=== PATIENT | female | born 1960 | race Caucasian/White ===

== ENCOUNTER 2018-07-14 14:07 | Emergency (ER) | payer BC ==
[~2018-07-14 14:07] MED LIST: ALLP300T PO; ASP81TEC PO; ATEN50TA PO; ATOR40TA PO; BUPR150T6 PO; CALC-149 PO; CALC667C6 PO; CYCL10TA9 PO; E400C PO; ESTR1TAB24 PO; FLAX100031 PO; FURO40TA4 PO; HYDR1TAB66 PO; KCL10CCR PO; LUTE10TA PO; MAGN400T6 PO; MELA1TAB11 PO; NAPR220C11 PO; QUET50TA49 PO; SENN-75 PO; SOLI10TA4 PO; TML25OP25 OU; VITA1CAP59 PO; VITAMIN B12 SL; ZPR80C PO; [UNRECOGNIZED DRUG - OTHER] PO
--- OUTSIDE RECORDS SUMMARY | 2018-07-14 14:13 | XMS REPORT ---
Author Author KETURAH ROMERO Organization [facility] Address [address] [place] [address] Care Team Providers Care Wastewater Operator Name Role Phone HEATHER, KETURAH Unavailable PROBLEMS Type Condition ICD9-CM Code [id number] Code Onset Dates Condition Status SNOMED Code Problem Essential hypertension I10 Active 89060514 Problem Other specified hypothyroidism E03.8 Active 41945636 Problem Primary osteoarthritis involving multiple joints M15.0 Active 717784049 Problem Bipolar 1 disorder F31.9 Active 207754127 ALLERGIES Substance Reaction Event Type Date Status Morphine Sulfate itching Drug Allergy May, Active ENCOUNTERS Encounter Location Date Diagnosis [address] [address] May, [address] [address] May, [address] [address] May, Other specified hypothyroidism E03.[address] [address] May, Other specified hypothyroidism E03.8 ; Occasional tremors R25.1 ; Bipolar 1 disorder F31.9 ; Bursitis of left hip, unspecified bursa M70.72 ; Primary osteoarthritis involving multiple joints M15.0 and Essential hypertension I10 [address] [address] May, Other specified hypothyroidism E03.8 and Occasional tremors R25.1 IMMUNIZATIONS No Known Immunizations SOCIAL HISTORY Never Assessed REASON FOR VISIT tremors in hands PLAN OF CARE Activity Details Follow Up prn Reason: VITAL SIGNS Height 66 in 2018-05-20 Weight 217 lbs 2018-05-20 BMI 35.02 kg/m2 2018-05-20 Blood pressure systolic 140 mmHg 2018-05-20 Blood pressure diastolic 78 mmHg 2018-05-20 MEDICATIONS Medication Instructions Dosage Frequency Start Date End Date Duration Status Acyclovir 5 % Externally Five times a day 1 application to affected area 4 day(s) Active Vitamin E 400 UNIT Orally Once a day 1 capsule 24h 30 day(s) Active Hydrocodone-Acetaminophen 5-325 MG Orally every 6 hrs 1 tablet as needed 6h Active Diclofenac Sodium 75 MG Orally Twice a day 1 tablet with food or milk 12h 30 day(s) Active VESIcare 10 MG Orally Once a day 1 tablet 24h 30 day(s) Active Protonix 40 MG Orally Once a day 1 tablet 24h 30 day(s) Active Levothyroxine Sodium 75 MCG TAKE 1 TABLET BY MOUTH ONCE DAILY IN THE MORNING 30 Active Ondansetron 4 MG as directed Active Cyclobenzaprine HCl 10 MG Orally Three times a day 1 tablet as needed 8h Active Estradiol 1 MG Orally Daily for Three Weeks, 1 Week off 1 tablet 30 day(s) Active Rome Carbonate ER 450 MG Orally Once a day 1 tablet at bedtime 24h 30 day(s) Active Abilify 15 MG Orally Once a day 1 tablet 24h 30 day(s) Active Lipitor 40 MG Orally Once a day 1 tablet 24h 30 day(s) Active Carafate 1 GM Orally Twice a day 1 tablet on an empty stomach 12h 30 day(s) Active Allopurinol 300 MG Orally Once a day 1 tablet 24h 30 day(s) Active Seroquel 50 MG Orally Once a day 1 tablet 24h 30 day(s) Active Clonidine HCl 0.1 MG Orally Once a day 1 tablet at bedtime 24h 30 day (s) Active Trazodone HCl 100 MG Orally Once a day 1 tablet at bedtime 24h 30 day (s) Active Cetirizine HCl 10 MG Orally Once a day 1 tablet 24h 30 day(s) Active RESULTS No Results PROCEDURES Procedure Date Ordered Result Body Site COMPREHEN METABOLIC PANEL May 20, 2018 LIPID PANEL May 20, 2018 ASSAY OF FREE THYROXINE May 20, 2018 ASSAY THYROID STIM HORMONE May 20, 2018 INSTRUCTIONS MEDICATIONS ADMINISTERED No Known Medications
--- OUTSIDE RECORDS SUMMARY | 2018-07-14 14:13 | XMS REPORT ---
Author Author KETURAH ROMERO Organization [facility] Address [address] [place] [address] Care Team Providers Care Billboard Erector Helper Name Role Phone HEATHERKETURAH Samuels Unavailable PROBLEMS Type Condition ICD9-CM Code [id number] Code Onset Dates Condition Status SNOMED Code Problem Bursitis of left hip 726.5 Dec, 0 [id number] Problem Hypertension 401.9 Jan, 0 11714442 Problem Bipolar I disorder 296.7 0 401484450 Problem DA (degenerative arthritis) 715.90 Oct, 0 046123965 Problem Hypertension I10 Jan, 0 32459171 Problem Gastroesophageal reflux disease with esophagitis 530.11 May, 0 989776811 Problem Status post colonoscopy Z98.890 May, 0 652048566816 Problem Bursitis of left hip M70.72 Dec, 0 01042405992546384 Problem Essential hypertension I10 Active 30693343 Problem Status post colonoscopy V45.89 May, 0 044801116381 Problem Other specified hypothyroidism E03.8 Active 74479945 Problem DA (degenerative arthritis) M19.90 Oct, 0 990733143 Problem Bipolar I disorder F31.9 0 046841775 Problem Gastroesophageal reflux disease with esophagitis K21.0 May, 0 257360792 Problem Primary osteoarthritis involving multiple joints M15.0 Active 443062204 Problem Bipolar 1 disorder F31.9 Active 796384959 ALLERGIES No Information ENCOUNTERS Encounter Location Date Diagnosis [address] [address] May, [address] [address] May, [address] [address] May, [address] [address] May, [address] [address] May, Other specified hypothyroidism E03.[address] [address] May, Other specified hypothyroidism E03.8 ; Occasional tremors R25.1 ; Bipolar 1 disorder F31.9 ; Bursitis of left hip, unspecified bursa M70.72 ; Primary osteoarthritis involving multiple joints M15.0 and Essential hypertension I10 [address] [address] May, Other specified hypothyroidism E03.8 and Occasional tremors R25.1 [facility] [address] [address] Feb, [facility] [address] [address] Oct, [facility] [address] [address] Sep, [facility] [address] [address] Jun, [facility] [address] [address] May, IMMUNIZATIONS No Known Immunizations SOCIAL HISTORY Never Assessed REASON FOR VISIT Med request PLAN OF CARE VITAL SIGNS MEDICATIONS Medication Instructions Dosage Frequency Start Date End Date Duration Status Magnesium Oxide 400 MG Orally 2 times a day 1 tablet 12h May, 90 days Active RESULTS No Results PROCEDURES No Known procedures INSTRUCTIONS MEDICATIONS ADMINISTERED No Known Medications
--- OUTSIDE RECORDS SUMMARY | 2018-07-14 14:14 | XMS REPORT ---
Author Author KETURAH ROMERO Organization [facility] Address [address] [place] [address] Care Team Providers Care Blast Furnace Operator Name Role Phone KETURAH ROMERO Unavailable PROBLEMS Type Condition ICD9-CM Code AWL27-OJ Code Onset Dates Condition Status SNOMED Code Problem Essential hypertension I10 Active 43935303 Problem Other specified hypothyroidism E03.8 Active 50494052 Problem Primary osteoarthritis involving multiple joints M15.0 Active 974360617 Problem Bipolar 1 disorder F31.9 Active 016019865 ALLERGIES No Information ENCOUNTERS Encounter Location Date Diagnosis [address] [address] May, [address] [address] May, [address] [address] May, Other specified hypothyroidism E03.[address] [address] May, Other specified hypothyroidism E03.8 ; Occasional tremors R25.1 ; Bipolar 1 disorder F31.9 ; Bursitis of left hip, unspecified bursa M70.72 ; Primary osteoarthritis involving multiple joints M15.0 and Essential hypertension I10 [address] [address] May, Other specified hypothyroidism E03.8 and Occasional tremors R25.1 IMMUNIZATIONS No Known Immunizations SOCIAL HISTORY Never Assessed REASON FOR VISIT LM - Requests return call PLAN OF CARE VITAL SIGNS MEDICATIONS Unknown Medications RESULTS No Results PROCEDURES No Known procedures INSTRUCTIONS MEDICATIONS ADMINISTERED No Known Medications
== END 2018-07-14 14:22 | disposition left against medical advice (07) ==
LOC: EDUNIT# 14:07 → ER FS 14:10
DX: R42 Dizziness and giddiness (principal); R00.1 Bradycardia, unspecified

== ENCOUNTER → 2019-12-24 | Outpatient (CLI) | payer BC | LOC: CARD 10:30 | PROVIDERS: ATTEND Internal Medicine Advanced Heart Failure and Transplant Cardiology | DX: I50.32 Chronic diastolic (congestive) heart failure (principal); I05.0 Rheumatic mitral stenosis | CPT/HCPCS: 93306 ==

== ENCOUNTER 2020-03-12 10:20 | Emergency (ER) | payer BC ==
--- NOTE | 2020-03-12 10:49 | ED Head Injury ---
General Chief Complaint: Head/Cervical Problems Stated Complaint: HEAD INJ Source: patient History of Present Illness Date Seen by Provider: Mar 12, 2020 Time Seen by Provider: 10:49 Initial Comments 59-year-old female presenting with complaint of hitting her head. She states around 9 AM she was with friends and while laughing and she had flung her head back and hit the back of her head against a ledge. Then she jerked her head for her after hitting it and was having pain. She denies losing consciousness. However she was having dizziness and nausea with some blurred vision. There was never any vomiting. She does not take any blood thinners. She had no drainage from her nose or ears. Her symptoms resolved spontaneously. She is feeling be tter now but still has some mild pain to the back of her head especially when she pushes on it. The pain does extend down into her neck muscles. Allergies and Home Medications Allergies Coded Allergies: morphine (Unverified Allergy, Unknown, 12/24/19) Home Medications Allopurinol 300 Mg Tab, 300 MG PO DAILY, (Reported) Aspirin 81 Mg Tabec, 81 MG PO DAILY, (Reported) Atenolol 50 Mg Tablet, 1 EACH PO DAILY, (Reported) Atorvastatin Calcium 40 Mg Tablet, 1 EACH PO DAILY, (Reported) Bupropion Hcl 150 Mg Tab.sr.24h, 1 TAB PO DAILY, (Reported) Calcium Citrate/Vitamin D3 1 Each Tablet, 1 EACH PO DAILY, (Reported) Cyclobenzaprine Hcl 10 Mg Tablet, 1 EACH PO Q8HR PRN, (Reported) Estradiol 1 Mg Tablet, 1 MG PO DAILY, (Reported) Flaxseed Oil 1,000 Mg Capsule, 2 GM PO DAILY, (Reported) Furosemide 40 Mg Tablet, 1 EACH PO DAILY, (Reported) Hydrocodone Bit/Acetaminophen 1 Each Tablet, 1 EACH PO Q4 PRN, (Reported) Lutein 10 Mg Tablet, 20 MG PO DAILY, (Reported) Magnesium Oxide 400 Mg Tablet, 400 MG PO BID, (Reported) Naproxen Sodium 220 Mg Capsule, 2 TAB PO PRN, (Reported) Potassium Chloride 10 Meq Tablet.sa, 10 MEQ PO BID PRN, (Reported) Pyridoxine/Melatonin 1 Tab Tablet, 1 TAB PO DAILY, (Reported) Quetiapine Fumarate 50 Mg Tab.sr.24h, 50 MG PO HS, (Reported) Sennosides/Docusate Sodium 1 Each Tablet, 2 EACH PO HS, (Reported) Solifenacin Succinate 10 Mg Tablet, 10 MG PO DAILY, (Reported) Timolol Maleate 15 Ml Btl, 0.5 % OU BID, (Reported) Triazolam 0.25 Mg Tablet, 0.5 MG PO HS, (Reported) Vitamin B Complex 1 Cap Capsule, 1 CAP PO 1700, (Reported) Vitamin E Acetate 400 Unit Capsule, 400 UNIT PO DAILY, (Reported) Ziprasidone 80 Mg Cap, 160 MG PO 1700, (Reported) [Scott And Nail Vit] , 2 TAB PO DAILY, (Reported) [Vitamin B12 ] , 500 MCG SL DAILY, (Reported) 3 GTTS Patient Home Medication List Home Medication List Reviewed: Yes Review of Systems Review of Systems Constitutional: No chills; dizziness; No fever Eyes: Blurred Vision Ears, Nose, Mouth, Throat: denies ear discharge, denies nose discharge, denies epistaxis Respiratory: no symptoms reported Cardiovascular: no symptoms reported Gastrointestinal: nausea; No vomiting Genitourinary: no symptoms reported Musculoskeletal: neck pain (pain from back of her head extends down into muscles of her neck) Skin: no symptoms reported Psychiatric/Neurological: See HPI Hematologic/Lymphatic: Denies Easy Bleeding, Denies Easy Bruising Past Mtlwakt-Mcyxdf-Obmpuq Hx Past Med/Social Hx: Reviewed Nursing Past Med/Soc Hx Patient Social History Recent Foreign Travel: No Contact w/Someone Who Travel: No Past Medical History Respiratory: No Cardiac: Yes High Cholesterol, Hypertension Reproductive Disorders: No Physical Exam Vital Signs Vital Signs - First Documented 03/12/20 10:47 Temp 37.4 Pulse 75 Resp 18 B/P (MAP) 179/80 (113) Pulse Ox 97 Capillary Refill : Height, Weight, BMI Height: '" Weight: lbs. oz. kg; BMI Method: General Appearance: WD/WN, no apparent distress HEENT: PERRL/EOMI, normal ENT inspection, TMs normal, pharynx normal Neck: full range of motion, supple, tender lateral (mild muscle tenderness bilaterally); No tender midline Cardiovascular: normal peripheral pulses, regular rate, rhythm Respiratory: chest non-tender, lungs clear, normal breath sounds, no respiratory distress, no accessory muscle use Psychiatric: alert, oriented x 3 Crainal Nerves: normal hearing, normal speech, PERRL Coordination/Gait: normal gait Motor/Sensory: no motor deficit, no sensory deficit Skin: normal color, warm/dry Rachel Coma Score Best Eye Response: (4) Open Spontaneously Best Verbal Response: (5) Oriented Best Motor Response: (6) Obeys Commands Victor Total: 15 Images 1 - mild tender to palpation. no step off or deformity Progress/Results/Core Measures Results/Orders My Orders Orders - LESA VICTOR MD Ct Head Wo (03/12/20 10:42) Vital Signs/I&O 03/12/20 03/12/20 10:47 11:25 Temp 37.4 Pulse 75 74 Resp 18 16 B/P (MAP) 179/80 (113) 144/74 Pulse Ox 97 95 Progress Progress Note : Progress Note CT head obtained due to her symptoms of dizzy, nausea, blurred vision. no acute abnormality seen on imaging. pt reassured and corrections counselor on follow up and return precautions Diagnostic Imaging Diagonstic Imaging: CT Plain Films/CT/US/NM/MRI: head Comments NAME: KEYA CARTWRIGHT MED REC#: [id number] PT STATUS: REG ER : 1960 PHYSICIAN: LESA VICTOR MD ADMIT DATE: 03/12/20/ER FS Draft Date of Exam:03/12/20 CT HEAD WO PROCEDURE: CT head without contrast. TECHNIQUE: Multiple contiguous axial images were obtained through the brain without the use of intravenous contrast. Auto Exposure Controls were utilized during the CT exam to meet ALARA standards for radiation dose reduction. INDICATION: Head injury. Dizziness. COMPARISON: None. FINDINGS: No intracranial hemorrhage, mass effect, hydrocephalus or extra-axial fluid collections. No CT evidence of a territorial infarction. Osseous structures are intact. Paranasal sinuses and mastoids are clear where seen. IMPRESSION: No acute intracranial CT findings. Dictated on workstation # [id number] Dict: 03/12/20 1100 Trans: 03/12/20 1103 [facility] [address] Interpreted by: RAH GRANADOS MD Electronically signed by: Departure Impression Primary Impression: Closed head injury without loss of consciousness Qualified Codes: S09.90XA - Unspecified injury of head, initial encounter Disposition: 01 HOME, SELF-CARE Condition: Stable Departure-Patient Inst. Decision time for Depature: 11:19 Referrals: KETURAH ROMERO APRN (PCP) Primary Care Physician [facility] (Family) Primary Care Physician Patient Instructions: Minor Head Injury, Adult ED Add. Discharge Instructions: Stay well hydrated and get plenty of rest. Follow up with clinic for continued concerns. May alternate ice and heat to the back of your head and neck to help with pain and muscle spasms. May use Ibuprofen or Naproxen for inflammation. May use the Cyclobenzaprine (Flexeril) you have at home if needed for muscle spasms. All discharge instructions reviewed with patient and/or family. Voiced understanding. LESA VICTOR MD Mar 12, 2020 10:49
--- NOTE | 2020-03-12 11:04 | Diagnostic Imaging Report ---
PROCEDURE: CT head without contrast. TECHNIQUE: Multiple contiguous axial images were obtained through the brain without the use of intravenous contrast. Auto Exposure Controls were utilized during the CT exam to meet ALARA standards for radiation dose reduction. INDICATION: Head injury. Dizziness. COMPARISON: None. FINDINGS: No intracranial hemorrhage, mass effect, hydrocephalus or extra-axial fluid collections. No CT evidence of a territorial infarction. Osseous structures are intact. Paranasal sinuses and mastoids are clear where seen. IMPRESSION: No acute intracranial CT findings. Dictated by: Dictated on workstation # [id number]
[2020-03-12 11:25] VITALS: BP 144/74
== END 2020-03-12 11:25 | disposition home or self-care (01) ==
LOC: EDUNIT# 10:20 → ER FS 10:23
DX: S09.90XA Unspecified injury of head, initial encounter (principal); E78.00 Pure hypercholesterolemia, unspecified; I10 Essential (primary) hypertension; R40.2410 Glasgow coma scale score 13-15, unspecified time; Z88.5 Allergy status to narcotic agent; Z79.82 Long term (current) use of aspirin; W22.8XXA Striking against or struck by other objects, initial encounter
CPT/HCPCS: 70450

== ENCOUNTER 2020-09-07 23:47 | Emergency (ER) | payer BC ==
[~2020-09-07] VITALS: Ht 163 cm; Wt 91.3 kg
[2020-09-08] MEDS ORDERED: ONDANSETRON 4 MG/2 ML (SDV) Z0FRAN IVP ONE (00:15)
[2020-09-08 00:20] LABS: BASOPHILS % (AUTO) 0 % (0-10); EOSINOPHILS # (AUTO) 0.2 10^3/uL (0.0-0.3); EOSINOPHILS % (AUTO) 1 % (0-10); HEMATOCRIT 44 % (35-52); HEMOGLOBIN 14.6 g/dL (11.5-16.0); LYMPHOCYTES # (AUTO) 3.3 10^3/uL (1.0-4.0); LYMPHOCYTES % (AUTO) 21 % (12-44); MEAN CORPUSCULAR HEMOGLOBIN 29 pg (25-34); MEAN CORPUSCULAR HGB CONC 33 g/dL (32-36); MEAN CORPUSCULAR VOLUME 87 fL (80-99); MEAN PLATELET VOLUME 10.4 fL (9.0-12.2); MONOCYTES # (AUTO) 1.2 10^3/uL (0.0-1.0); MONOCYTES % (AUTO) 8 % (0-12); NEUTROPHILS # (AUTO) 11.1 10^3/uL (1.8-7.8); NEUTROPHILS % (AUTO) 70 % (42-75); PLATELET COUNT 297 10^3/uL (130-400); WHITE BLOOD COUNT 15.9 10^3/uL (4.3-11.0)
[2020-09-08 00:43] LABS: ALBUMIN 3.9 GM/DL (3.2-4.5); CHLORIDE 100 MMOL/L (98-107); POTASSIUM 3.8 MMOL/L (3.6-5.0); SODIUM 139 MMOL/L (135-145)
[2020-09-08 00:44] LABS: AMYLASE 43 U/L (25-125); CALCIUM 9.7 MG/DL (8.5-10.1)
[2020-09-08 00:45] LABS: GLUCOSE 96 MG/DL (70-105)
[2020-09-08 00:46] LABS: TOTAL PROTEIN 6.8 GM/DL (6.4-8.2)
[2020-09-08 00:47] LABS: BILIRUBIN,TOTAL 0.3 MG/DL (0.1-1.0); CARBON DIOXIDE 28 MMOL/L (21-32)
[2020-09-08 00:49] LABS: ALKALINE PHOSPHATASE 69 U/L (40-136); CREATININE SERUM 0.92 MG/DL (0.60-1.30); GFR ESTIMATED > 60
[2020-09-08 00:50] LABS: BUN/CREATININE RATIO 17
[2020-09-08 00:52] LABS: ALANINE AMINOTRANSFERASE 47 U/L (0-55); MAGNESIUM 1.8 MG/DL (1.6-2.4)
[2020-09-08 00:53] LABS: CREATINE KINASE 106 U/L (29-168); LIPASE 33 U/L (8-78)
[2020-09-08 00:57] LABS: BILIRUBIN,URINE NEGATIVE (NEGATIVE); CLARITY,URINE CLEAR; COLOR,URINE YELLOW; GLUCOSE, URINE (UA) NEGATIVE (NEGATIVE); KETONES,URINE NEGATIVE (NEGATIVE); LEUKOCYTE ESTERASE ,URINE NEGATIVE (NEGATIVE); NITRITE,URINE NEGATIVE (NEGATIVE); PH,URINE 6.5 (5-9); PROTEIN,URINE NEGATIVE (NEGATIVE)
[2020-09-08 01:00] LABS: CREATINE KINASE MB 5.1 NG/ML (<6.6)
[2020-09-08 01:26] LABS: AMPHETAMINE SCREEN, URINE NEGATIVE (NEGATIVE); BARBITURATE SCREEN URINE NEGATIVE (NEGATIVE); BENZODIAZEPINES SCREEN URINE NEGATIVE (NEGATIVE); CANNABINOID SCREEN, URINE NEGATIVE (NEGATIVE); COCAINE SCREEN URINE NEGATIVE (NEGATIVE); METHADONE STAT NEGATIVE (NEGATIVE); METHAMPHETAMINE SCREEN URINE S NEGATIVE (NEGATIVE); OPIATE SCREEN URINE NEGATIVE (NEGATIVE); OXYCODONE STAT NEGATIVE (NEGATIVE); PROPOXYPHENE STAT NEGATIVE (NEGATIVE); TRICYCLIC ANTIDEPRESSANTS SCRE NEGATIVE (NEGATIVE)
[2020-09-08] MEDS ORDERED: KETOROLAC 30 MG/ML VIAL IVP ONE (01:45)
[2020-09-08 01:48] LABS: BACTERIA,URINE NEGATIVE /HPF
[2020-09-08] MEDS ORDERED: HOLD METFORMIN - RECEIVED CONTRAST 20 ML VIAL IV SCH (02:15)
[2020-09-08] MEDS ORDERED: CATHETER FLUSH 10 ML SYR IV PRN (02:15)
[2020-09-08] MEDS ORDERED: NS 100 ML (IVPB) BAG IV ONE (02:15)
[2020-09-08] MEDS ORDERED: IOHEXOL 350 MG/ML 100 ML (OMNIPAQUE 350) VIAL IV ONE (02:15)
[2020-09-08 02:38] LABS: EOSINOPHILS % (MANUAL) 1 %; LYMPHOCYTES % (MANUAL) 23 %; MONOCYTES % (MANUAL) 7 %; NEUTROPHILS % (MANUAL) 69 %; RBC MORPH NORMAL
[2020-09-08] MEDS ORDERED: PANT40TA2 PO (03:07)
[2020-09-08] MEDS ORDERED: ONDA4TAB11 PO (03:07)
[2020-09-08] MEDS ORDERED: KETO10TA PO (03:07)
--- NOTE | 2020-09-08 03:07 | ED General ---
General Chief Complaint: Upper Extremity Stated Complaint: LEFT SHOULDER,BACK & NECK PAIN Nursing Triage Note: C/O LEFT SHOUDLER PAIN RADIATING TO NECK/POSTERIOR HEAD, RIGHT CHEST X1 DAY. DENIES INJURY. C/O DIZZINESS TONIGHT. Nursing Sepsis Screen: No Definite Risk Allergies and Home Medications Allergies Coded Allergies: morphine (Unverified Allergy, Unknown, 12/24/19) Home Medications Allopurinol 300 Mg Tab, 300 MG PO DAILY, (Reported) Aspirin 81 Mg Tabec, 81 MG PO DAILY, (Reported) Atenolol 50 Mg Tablet, 1 EACH PO DAILY, (Reported) Atorvastatin Calcium 40 Mg Tablet, 1 EACH PO DAILY, (Reported) Bupropion Hcl 150 Mg Tab.sr.24h, 1 TAB PO DAILY, (Reported) Calcium Citrate/Vitamin D3 1 Each Tablet, 1 EACH PO DAILY, (Reported) Cyclobenzaprine Hcl 10 Mg Tablet, 1 EACH PO Q8HR PRN, (Reported) Estradiol 1 Mg Tablet, 1 MG PO DAILY, (Reported) Flaxseed Oil 1,000 Mg Capsule, 2 GM PO DAILY, (Reported) Furosemide 40 Mg Tablet, 1 EACH PO DAILY, (Reported) Hydrocodone Bit/Acetaminophen 1 Each Tablet, 1 EACH PO Q4 PRN, (Reported) Ketorolac Tromethamine 10 Mg Tablet, 10 MG PO Q6H Prescribed by: JACOB GUTIERREZ on 09/08/20306 Lutein 10 Mg Tablet, 20 MG PO DAILY, (Reported) Magnesium Oxide 400 Mg Tablet, 400 MG PO BID, (Reported) Naproxen Sodium 220 Mg Capsule, 2 TAB PO PRN, (Reported) Ondansetron 4 Mg Tab.rapdis, 4 MG PO Q4H Prescribed by: JACOB GUTIERREZ on 09/08/20306 Pantoprazole Sodium 40 Mg Tablet.dr, 40 MG PO DAILY Prescribed by: JACOB GUTIERREZ on 09/08/20306 Potassium Chloride 10 Meq Tablet.sa, 10 MEQ PO BID PRN, (Reported) Pyridoxine/Melatonin 1 Tab Tablet, 1 TAB PO DAILY, (Reported) Quetiapine Fumarate 50 Mg Tab.sr.24h, 50 MG PO HS, (Reported) Sennosides/Docusate Sodium 1 Each Tablet, 2 EACH PO HS, (Reported) Solifenacin Succinate 10 Mg Tablet, 10 MG PO DAILY, (Reported) Timolol Maleate 15 Ml Btl, 0.5 % OU BID, (Reported) Triazolam 0.25 Mg Tablet, 0.5 MG PO HS, (Reported) Vitamin B Complex 1 Cap Capsule, 1 CAP PO 1700, (Reported) Vitamin E Acetate 400 Unit Capsule, 400 UNIT PO DAILY, (Reported) Ziprasidone 80 Mg Cap, 160 MG PO 1700, (Reported) [Scott And Nail Vit] , 2 TAB PO DAILY, (Reported) [Vitamin B12 ] , 500 MCG SL DAILY, (Reported) 3 GTTS Past S[facility]ws[facility]-Owhjhu-Hqjcrx Hx Patient Social History Alcohol Use: Denies Use Smoking Status: Never a Smoker 2nd Hand Smoke Exposure: No Recent Infectious Disease Expo: No Recent Hopitalizations: No Immunizations Up To Date Tetanus Booster (TDap): Unknown Seasonal Allergies Seasonal Allergies: No Past Medical History Surgeries: Yes Gallbladder, Hysterectomy, Orthopedic, Tonsillectomy Respiratory: No Cardiac: Yes High Cholesterol, Hypertension Neurological: No : No Reproductive Disorders: 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 oz. kg; 34.00 BMI Method: Progress/Results/Core Measures Suspected Sepsis Recent Fever Within 48 Hours: No Infection Criteria Present: None New/Unexplained Altered Menta: No Sepsis Screen: No Definite Risk SIRS Temperature: Pulse: 78 Respiratory Rate: 18 Laboratory Tests 09/08/20 00:00: White Blood Count 15.9H Blood Pressure 189 /93 Mean: 125 Laboratory Tests 09/08/20 00:00: Creatinine 0.92, Platelet Count 297, Total Bilirubin 0.3 Results/Orders Lab Results Laboratory Tests Test 09/08/20 00:00 09/08/20 00:48 Range/Units White Blood Count 15.9 H 4.3-11.0 10^3/uL Red Blood Count 5.05 3.80-5.11 10^6/uL Hemoglobin 14.6 11.5-16.0 g/dL Hematocrit 44 35-52 % Mean Corpuscular Volume 87 80-99 fL Mean Corpuscular Hemoglobin 29 25-34 pg Mean Corpuscular Hemoglobin Concent 33 32-36 g/dL Red Cell Distribution Width 13.2 10.0-14.5 % Platelet Count 297 130-400 10^3/uL Mean Platelet Volume 10.4 9.0-12.2 fL Immature Granulocyte % (Auto) 0 % Neutrophils (%) (Auto) 70 42-75 % Lymphocytes (%) (Auto) 21 12-44 % Monocytes (%) (Auto) 8 0-12 % Eosinophils (%) (Auto) 1 0-10 % Basophils (%) (Auto) 0 0-10 % Neutrophils # (Auto) 11.1 H 1.8-7.8 10^3/uL Lymphocytes # (Auto) 3.3 1.0-4.0 10^3/uL Monocytes # (Auto) 1.2 H 0.0-1.0 10^3/uL Eosinophils # (Auto) 0.2 0.0-0.3 10^3/uL Basophils # (Auto) 0.0 0.0-0.1 10^3/uL Immature Granulocyte # (Auto) 0.1 0.0-0.1 10^3/uL Neutrophils % (Manual) 69 % Lymphocytes % (Manual) 23 % Monocytes % (Manual) 7 % Eosinophils % (Manual) 1 % Blood Morphology Comment NORMAL Sodium Level 139 135-145 MMOL/L Potassium Level 3.8 3.6-5.0 MMOL/L Chloride Level 100 98-107 MMOL/L Carbon Dioxide Level 28 21-32 MMOL/L Anion Gap 11 5-14 MMOL/L Blood Urea Nitrogen 16 7-18 MG/DL Creatinine 0.92 0.60-1.30 MG/DL Estimat Glomerular Filtration Rate > 60 BUN/Creatinine Ratio 17 Glucose Level 96 70-105 MG/DL Calcium Level 9.7 8.5-10.1 MG/DL Corrected Calcium 9.8 8.5-10.1 MG/DL Magnesium Level 1.8 1.6-2.4 MG/DL Total Bilirubin 0.3 0.1-1.0 MG/DL Aspartate Amino Transf (AST/SGOT) 26 5-34 U/L Alanine Aminotransferase (ALT/SGPT) 47 0-55 U/L Alkaline Phosphatase 69 40-136 U/L Total Creatine Kinase 106 29-168 U/L Creatine Kinase MB 5.1 <6.6 NG/ML Myoglobin 73.9 10.0-92.0 NG/ML Troponin I < 0.028 <0.028 NG/ML B-Type Natriuretic Peptide 60.9 <100.0 PG/ML Total Protein 6.8 6.4-8.2 GM/DL Albumin 3.9 3.2-4.5 GM/DL Amylase Level 43 25-125 U/L Lipase 33 8-78 U/L Urine Color YELLOW Urine Clarity CLEAR Urine pH 6.5 5-9 Urine Specific [place] <=1.005 1.016-1.022 Urine Protein NEGATIVE NEGATIVE Urine Glucose (UA) NEGATIVE NEGATIVE Urine Ketones NEGATIVE NEGATIVE Urine Nitrite NEGATIVE NEGATIVE Urine Bilirubin NEGATIVE NEGATIVE Urine Urobilinogen 0.2 < = 1.0 MG/DL Urine Leukocyte Esterase NEGATIVE NEGATIVE Urine RBC (Auto) NEGATIVE NEGATIVE Urine RBC NONE /HPF Urine WBC NONE /HPF Urine Crystals NONE /LPF Urine Bacteria NEGATIVE /HPF Urine Casts NONE /LPF Urine Mucus NEGATIVE /LPF Urine Culture Indicated NO Urine Opiates Screen NEGATIVE NEGATIVE Urine Oxycodone Screen NEGATIVE NEGATIVE Urine Methadone Screen NEGATIVE NEGATIVE Urine Propoxyphene Screen NEGATIVE NEGATIVE Urine Barbiturates Screen NEGATIVE NEGATIVE Ur Tricyclic Antidepressants Screen NEGATIVE NEGATIVE Urine Phencyclidine Screen NEGATIVE NEGATIVE Urine Amphetamines Screen NEGATIVE NEGATIVE Urine Methamphetamines Screen NEGATIVE NEGATIVE Urine Benzodiazepines Screen NEGATIVE NEGATIVE Urine Cocaine Screen NEGATIVE NEGATIVE Urine Cannabinoids Screen NEGATIVE NEGATIVE My Orders Orders - JACOB GUTIERREZ DO Ed Iv/Invasive Line Start (09/08/20 00:10) Ekg Tracing (09/08/20 00:10) Monitor-Rhythm Ecg Trace Only (09/08/20 00:10) Amylase (09/08/20 00:10) BNP (09/08/20 00:10) Cbc With Automated Diff (09/08/20 00:10) Comprehensive Metabolic Panel (09/08/20 00:10) Creatine Kinase (09/08/20 00:10) Creatine Kinase Mb (09/08/20 00:10) Fibrin Degradation Products (09/08/20 00:10) Drug Screen Stat (Urine) (09/08/20 00:10) Lipase (09/08/20 00:10) Magnesium (09/08/20 00:10) Ua Culture If Indicated (09/08/20 00:10) Myoglobin Serum (09/08/20 00:10) Troponin I (09/08/20 00:10) Chest 1 View, Ap/Pa Only (09/08/20 00:10) Ondansetron Injection (Zofran Injectio (09/08/20 00:15) Manual Differential (09/08/20 00:00) Ct Chest/Abdomen/Pelvis W (09/08/20 01:35) Ketorolac Injection (Toradol Injection) (09/08/20 01:45) Iohexol Injection (Omnipaque 350 Mg/Ml 1 (09/08/20 02:15) Received Contrast (Hold Metformin- Contr (09/08/20 02:15) Sodium Chloride Flush (Catheter Flush Sy (09/08/20 02:15) Ns (Ivpb) (Sodium Chloride 0.9% Ivpb Bag (09/08/20 02:15) Medications Given in ED Current Medications Medications Dose Ordered Sig/Ren Route Start Time Stop Time Status Last Admin Dose Admin Iohexol 100 ml ONCE ONCE IV 09/08/20 02:15 09/08/20 02:16 DC 09/08/20 02:11 100 ML Ketorolac Tromethamine 30 mg ONCE ONCE IVP 09/08/20 01:45 09/08/20 01:46 DC 09/08/20 01:45 30 MG Ondansetron HCl 4 mg ONCE ONCE IVP 09/08/20 00:15 09/08/20 00:16 DC 09/08/20 00:31 4 MG Sodium Chloride 10 ml NEEDED PRN IV 09/08/20 02:15 09/08/20 02:11 10 ML Sodium Chloride 100 ml ONCE ONCE IV 09/08/20 02:15 09/08/20 02:16 DC 09/08/20 02:11 80 ML Vital Signs/I&O 09/07/20 23:56 Temp 36.7 Pulse 78 Resp 18 B/P (MAP) 189/93 (125) Pulse Ox 95 O2 Delivery Room Air Capillary Refill : Less Than 3 Seconds Blood Pressure Mean: 125 Departure Impression Primary Impression: Right-sided chest wall pain Additional Impressions: Neck pain on left side HTN (hypertension) Disposition: 01 HOME, SELF-CARE Condition: Improved Departure-Patient Inst. Decision time for Depature: 03:00 Referrals: KETURAH ROMERO APRN (PCP) Primary Care Physician [facility] (Family) Primary Care Physician Patient Instructions: Muscle and Bone Pain (DC), Low Salt Diet, High Blood Pressure ED Add. Discharge Instructions: CONTINUE YOUR MEDICATIONS PRESCRIBED FOLLOW UP WITH YOUR DR THIS WEEK FOR FURTHER EVALUATION All discharge instructions reviewed with patient and/or family. Voiced understanding. Scripts Ketorolac Tromethamine (Ketorolac Tromethamine) 10 Mg Tablet 10 MG PO Q6H for Pain, #15 TAB Prov: JACOB GUTIERREZ DO 09/08/20 Pantoprazole Sodium (Protonix) 40 Mg Tablet.dr 40 MG PO DAILY, #15 TAB Prov: JACOB GUTIERREZ DO 09/08/20 Ondansetron (Ondansetron Odt) 4 Mg Tab.rapdis 4 MG PO Q4H for Nausea/Vomiting, #10 TAB Prov: JACOB GUTIERREZ DO 09/08/20 JACOB GUTIERREZ DO Sep 08, 2020 03:07
[2020-09-08 03:11] VITALS: BP 157/76
--- NOTE | 2020-09-08 08:36 | Diagnostic Imaging Report ---
INDICATION: Chest pain. Time of exam 12:33 AM No prior studies are available for comparison. The heart size is normal. The pulmonary vascularity is unremarkable. The lungs are clear. No infiltrate, effusion or pneumothorax is detected. Impression: No acute cardiopulmonary process is detected. Dictated by: Dictated on workstation # [id number]
--- NOTE | 2020-09-08 08:41 | Diagnostic Imaging Report ---
PROCEDURE: CT chest, abdomen, and pelvis with contrast. TECHNIQUE: Multiple contiguous axial images were obtained through the chest, abdomen, and pelvis after the administration of intravenous contrast. Auto Exposure Controls were utilized during the CT exam to meet ALARA standards for radiation dose reduction. INDICATION: Right-sided chest and abdominal pain for one day. No prior studies are available for comparison. CT CHEST: No axillary, hilar or mediastinal lymphadenopathy is detected. No pericardial or pleural fluid is identified. No pulmonary infiltrates, nodules or masses are detected. IMPRESSION: Unremarkable CT of the chest. CT abdomen and pelvis: No focal liver mass is detected. Gallbladder is surgically absent. There is no biliary ductal dilatation. The pancreas and spleen are unremarkable. No adrenal mass is detected. Kidneys are unremarkable. Aorta is nonaneurysmal but moderately calcified. The bowel loops demonstrate moderate stool in the colon. There is no obstruction. There is a small fat-containing umbilical hernia. No free fluid or fluid collection is identified. Bladder is unremarkable. No abdominal or pelvic lymphadenopathy is seen. IMPRESSION: Unremarkable CT of the abdomen and pelvis apart from moderate stool in the colon. No acute feature is detected. Dictated by: Dictated on workstation # [id number]
== END 2020-09-08 03:15 | disposition home or self-care (01) ==
LOC: EDUNIT# 23:47 → ER 23:52
DX: R07.89 Other chest pain (principal); M54.2 Cervicalgia; I10 Essential (primary) hypertension; E78.00 Pure hypercholesterolemia, unspecified; F41.9 Anxiety disorder, unspecified; F32.9 Major depressive disorder, single episode, unspecified; Z79.82 Long term (current) use of aspirin; Z79.899 Other long term (current) drug therapy
CPT/HCPCS: 36415; 71045; 71260; 74177; 80053; 80306; 81000; 82150; 82550; 82553; 83690; 83735; 83874; 83880; 84484; 85007; 85027; 93005; 93041

== ENCOUNTER → 2021-04-21 | Outpatient (CLI) | payer BC ==
[~2021-04-21] MED LIST changes: +KETO10TA PO; +ONDA4TAB11 PO; +PANT40TA2 PO
--- NOTE | 2021-04-21 17:26 | Diagnostic Imaging Report ---
EXAMINATION: Cervical spine radiographs, 3 views. COMPARISON: None. HISTORY: 60-year-old female, chronic neck pain. FINDINGS: The cervical disc heights are well preserved. The lateral masses of C1 are normally aligned relative to C2. There is grade 1 anterolisthesis of C3 on C4 measuring 3.5 mm. There is no identified acute fracture of the cervical spine. There is no prominent prevertebral soft tissue swelling. IMPRESSION: 1. Grade 1 anterolisthesis of C3 on C4 measuring 3.5 mm. 2. Cervical disc heights are well preserved without evidence of pronounced arthritis of the cervical spine. Dictated by: Dictated on workstation # [id number]
== END ==
LOC: RAD FS 16:01
PROVIDERS: ATTEND Nurse Practitioner Family
DX: M43.12 Spondylolisthesis, cervical region (principal)
CPT/HCPCS: 72040

== ENCOUNTER 2021-05-05 14:40 | Emergency (ER) | payer BC ==
[~2021-05-05] VITALS: Ht 167 cm; Wt 91.3 kg
[2021-05-05 15:04] LABS: BASOPHILS # (AUTO) 0.1 10^3/uL (0.0-0.1); BASOPHILS % (AUTO) 1 % (0-10); EOSINOPHILS # (AUTO) 0.1 10^3/uL (0.0-0.3); EOSINOPHILS % (AUTO) 1 % (0-10); HEMATOCRIT 41 % (35-52); HEMOGLOBIN 13.7 g/dL (11.5-16.0); LYMPHOCYTES # (AUTO) 2.2 10^3/uL (1.0-4.0); LYMPHOCYTES % (AUTO) 24 % (12-44); MEAN CORPUSCULAR HEMOGLOBIN 28 pg (25-34); MEAN CORPUSCULAR HGB CONC 33 g/dL (32-36); MEAN CORPUSCULAR VOLUME 85 fL (80-99); MEAN PLATELET VOLUME 10.2 fL (9.0-12.2); MONOCYTES # (AUTO) 0.9 10^3/uL (0.0-1.0); MONOCYTES % (AUTO) 10 % (0-12); NEUTROPHILS % (AUTO) 65 % (42-75); PLATELET COUNT 221 10^3/uL (130-400); WHITE BLOOD COUNT 9.2 10^3/uL (4.3-11.0)
--- NOTE | 2021-05-05 15:06 | ED General ---
General Stated Complaint: DIZZINESS; DECREASED HR Source of Information: Patient History of Present Illness Date Seen by Provider: May 05, 2021 Time Seen by Provider: 14:44 Initial Comments 60-year-old female presenting with complaints of feeling dizzy and feeling like her heart was beating too slow. When she checked it at home her heart rate was anywhere from 55-70. She had a blood pressure of about 109 systolic. She states that she was not planning on coming in but a friend came over and told her that she looked really bad and that she needed to be seen right away. She has recently been seen by Dr. Cloud and plans to follow-up with him for her cardiology care. 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 She has had no issues since then. She recently had adjustment of her blood pressure medications by Dr. Cloud. She denies any fever, chills, headache, nausea, vomiting, cough, abdominal pain, burning with urination. Timing/Duration: 4-6 Hours Severity: Moderate Associated Systoms: No Chest Pain, No Cough, No Diaphoresis, No Fever/Chills, No Headaches, No Loss of Appetite; Malaise; No Nausea/Vomiting, No Rash, No Seizure, No Shortness of Air, No Syncope, No Weakness Allergies and Home Medications Allergies Coded Allergies: morphine (Unverified Allergy, Unknown, 12/24/19) Patient Home Medication List Home Medication List Reviewed: Yes Allopurinol (Zyloprim) 300 Mg Tab, 300 MG PO DAILY, (Reported) Entered as Reported by: ANN JENSEN on 01/11/111639 Aspirin (Aspirin Ec 81 Mg) 81 Mg Tabec, 81 MG PO DAILY, (Reported) Entered as Reported by: ANN JENSEN on 01/11/111639 Atenolol (Tenormin 50 Mg) 50 Mg Tablet, 1 EACH PO DAILY, (Reported) Entered as Reported by: ANN JENSEN on 01/11/111639 Atorvastatin Calcium (Lipitor 40MG) 40 Mg Tablet, 1 EACH PO DAILY, (Reported) Entered as Reported by: ANN JENSEN on 01/11/111639 Bupropion Hcl (Wellbutrin Xl) 150 Mg Tab.sr.24h, 1 TAB PO DAILY, (Reported) Entered as Reported by: NAN JENSEN on 01/11/11 1640 Calcium Citrate/Vitamin D3 (Citracal + D Maximum Caplet) 1 Each Tablet, 1 EACH PO DAILY, (Reported) Entered as Reported by: ANN JENSEN on 01/11/11 1640 Cyclobenzaprine Hcl (Cyclobenzaprine Hcl) 10 Mg Tablet, 1 EACH PO Q8HR PRN, (Reported) Entered as Reported by: ANN JENSEN on 01/11/111639 Estradiol (Estradiol) 1 Mg Tablet, 1 MG PO DAILY, (Reported) Entered as Reported by: ANN JENSEN on 01/11/11 1640 Flaxseed Oil (Flax Seed Oil) 1,000 Mg Capsule, 2 GM PO DAILY, (Reported) Entered as Reported by: ANN JENSEN on 01/11/111639 Furosemide (Furosemide) 40 Mg Tablet, 1 EACH PO DAILY, (Reported) Entered as Reported by: ANN JENSEN on 01/11/111639 Hydrocodone Bit/Acetaminophen (Hydrocodon-Acetaminophen 5-500) 1 Each Tablet, 1 EACH PO Q4 PRN, (Reported) Entered as Reported by: ANN JENSEN on 01/11/111639 Ketorolac Tromethamine (Ketorolac Tromethamine) 10 Mg Tablet, 10 MG PO Q6H Prescribed by: JACOB GUTIERREZ on 09/08/20306 Lutein (Lutein) 10 Mg Tablet, 20 MG PO DAILY, (Reported) Entered as Reported by: ANN JENSEN on 01/11/111639 Magnesium Oxide (Magnesium Oxide) 400 Mg Tablet, 400 MG PO BID, (Reported) Entered as Reported by: ANN JENSEN on 01/11/111639 Naproxen Sodium (Aleve) 220 Mg Capsule, 2 TAB PO PRN, (Reported) Entered as Reported by: ANN JENSEN on 01/11/11 1640 Ondansetron (Ondansetron Odt) 4 Mg Tab.rapdis, 4 MG PO Q4H Prescribed by: JACOB GUTIERREZ on 09/08/20306 Pantoprazole Sodium (Protonix) 40 Mg Tablet.dr, 40 MG PO DAILY Prescribed by: JACOB GUTIERREZ on 09/08/20306 Potassium Chloride (Klor-Con 10) 10 Meq Tablet.sa, 10 MEQ PO BID PRN, (Reported) Entered as Reported by: ANN JENSEN on 01/11/111639 Pyridoxine/Melatonin (Melatonin 3 Mg Tablet) 1 Tab Tablet, 1 TAB PO DAILY, (Reported) Entered as Reported by: ANN JENSEN on 01/11/111639 Quetiapine Fumarate (Seroquel Xr) 50 Mg Tab.sr.24h, 50 MG PO HS, (Reported) Entered as Reported by: ANN JENSEN on 01/11/111639 Sennosides/Docusate Sodium (Stool Softener Tablet) 1 Each Tablet, 2 EACH PO HS, (Reported) Entered as Reported by: ANN JENSEN on 01/11/111639 Solifenacin Succinate (Vesicare) 10 Mg Tablet, 10 MG PO DAILY, (Reported) Entered as Reported by: ANN JENSEN on 01/11/111639 Timolol Maleate (Timolol Maleate 0.25%) 15 Ml Btl, 0.5 % OU BID, (Reported) Entered as Reported by: ANN JENSEN on 01/11/111639 Triazolam (Halcion) 0.25 Mg Tablet, 0.5 MG PO HS, (Reported) Entered as Reported by: ANN JENSEN on 01/11/111639 Vitamin B Complex (B Complex) 1 Cap Capsule, 1 CAP PO 1700, (Reported) Entered as Reported by: ANN JENSEN on 01/11/111639 Vitamin E Acetate (Vitamin E) 400 Unit Capsule, 400 UNIT PO DAILY, (Reported) Entered as Reported by: ANN JENSEN on 01/11/111639 Ziprasidone (Geodon 80 Mg Cap) 80 Mg Cap, 160 MG PO 1700, (Reported) Entered as Reported by: ANN JENSEN on 01/11/111639 [Scott And Nail Vit] , 2 TAB PO DAILY, (Reported) Entered as Reported by: ANN JENSEN on 01/11/111639 [Vitamin B12 ] , 500 MCG SL DAILY, (Reported) Entered as Reported by: ANN JENSEN on 01/11/111639 Review of Systems Review of Systems Constitutional: No chills; dizziness; No fever; malaise EENTM: No ear pain, No blurred vision, No double vision, No epistaxis, No nose congestion, No throat pain Respiratory: No cough, No short of breath Cardiovascular: No chest pain, No edema Gastrointestinal: no symptoms reported Genitourinary: no symptoms reported Musculoskeletal: neck pain (Chronic neck pain) Skin: No rash Psychiatric/Neurological: Anxiety; Denies Headache, Denies Numbness, Denies Paresthesia Past Jpikrns-Bhgfhg-Gkjioz Hx Immunizations Up To Date Tetanus Booster (TDap): Unknown Seasonal Allergies Seasonal Allergies: No Past Medical History Surgeries: Yes Appendectomy, Gallbladder, Hysterectomy, Orthopedic, Tonsillectomy Respiratory: No Cardiac: Yes High Cholesterol, Hypertension, Palpitations Neurological: No Reproductive Disorders: No [employer] History: Menopausal Sexually Transmitted Disease: No Genitourinary: No Gastrointestinal: Yes (S/P ALIS AND APPY) Musculoskeletal: Yes (ARTHRITIS) Endocrine: No HEENT: No Cancer: No Psychosocial: Yes (MOOD DISORDER) Anxiety, Bipolar, Depression Integumentary: No Blood Disorders: No Physical Exam Vital Signs Vital Signs - First Documented 05/05/21 14:45 Temp 36.8 Pulse 71 Resp 18 B/P (MAP) 158/66 (96) Pulse Ox 97 O2 Delivery Room Air Capillary Refill : Height, Weight, BMI Height: '" Weight: lbs. oz. kg; 34.00 BMI Method: General Appearance: No Apparent Distress, WD/WN, Anxious HEENT: PERRL/EOMI, Pharynx Normal Neck: Full Range of Motion, Normal Inspection, Non Tender, Supple Respiratory: Chest Non Tender, Lungs Clear, Normal Breath Sounds, No Accessory Muscle Use, No Respiratory Distress Cardiovascular: Regular Rate, Rhythm, Normal Peripheral Pulses, Systolic Murmur Gastrointestinal: Normal Bowel Sounds, No Pulsatile Mass, Non Tender, Soft Rectal: Deferred Extremity: Normal Capillary Refill, Normal Inspection, No Pedal Edema Neurologic/Psychiatric: Alert, Oriented x3, knocker out II-XII Norm as Tested Skin: Normal Color, Warm/Dry Progress/Results/Core Measures Suspected Sepsis SIRS Temperature: Pulse: Respiratory Rate: Laboratory Tests 05/05/21 14:58: White Blood Count 9.2 Blood Pressure / Mean: Laboratory Tests 05/05/21 14:58: Creatinine 1.29, INR Comment 1.0, Platelet Count 221, Total Bilirubin 0.3 Results/Orders Lab Results Laboratory Tests Test 05/05/21 14:58 05/05/21 15:46 Range/Units White Blood Count 9.2 4.3-11.0 10^3/uL Red Blood Count 4.89 3.80-5.11 10^6/uL Hemoglobin 13.7 11.5-16.0 g/dL Hematocrit 41 35-52 % Mean Corpuscular Volume 85 80-99 fL Mean Corpuscular Hemoglobin 28 25-34 pg Mean Corpuscular Hemoglobin Concent 33 32-36 g/dL Red Cell Distribution Width 12.8 10.0-14.5 % Platelet Count 221 130-400 10^3/uL Mean Platelet Volume 10.2 9.0-12.2 fL Immature Granulocyte % (Auto) 0 % Neutrophils (%) (Auto) 65 42-75 % Lymphocytes (%) (Auto) 24 12-44 % Monocytes (%) (Auto) 10 0-12 % Eosinophils (%) (Auto) 1 0-10 % Basophils (%) (Auto) 1 0-10 % Neutrophils # (Auto) 6.0 1.8-7.8 10^3/uL Lymphocytes # (Auto) 2.2 1.0-4.0 10^3/uL Monocytes # (Auto) 0.9 0.0-1.0 10^3/uL Eosinophils # (Auto) 0.1 0.0-0.3 10^3/uL Basophils # (Auto) 0.1 0.0-0.1 10^3/uL Immature Granulocyte # (Auto) 0.0 0.0-0.1 10^3/uL Prothrombin Time 13.4 12.2-14.7 SEC INR Comment 1.0 0.8-1.4 Activated Partial Thromboplast Time 26 24-35 SEC Sodium Level 137 135-145 MMOL/L Potassium Level 4.0 3.6-5.0 MMOL/L Chloride Level 100 98-107 MMOL/L Carbon Dioxide Level 27 21-32 MMOL/L Anion Gap 10 5-14 MMOL/L Blood Urea Nitrogen 15 7-18 MG/DL Creatinine 1.29 0.60-1.30 MG/DL Estimat Glomerular Filtration Rate 47 BUN/Creatinine Ratio 12 Glucose Level 102 70-105 MG/DL Calcium Level 9.9 8.5-10.1 MG/DL Corrected Calcium 9.5 8.5-10.1 MG/DL Magnesium Level 1.9 1.6-2.4 MG/DL Total Bilirubin 0.3 0.1-1.0 MG/DL Aspartate Amino Transf (AST/SGOT) 21 5-34 U/L Alanine Aminotransferase (ALT/SGPT) 17 0-55 U/L Alkaline Phosphatase 66 40-136 U/L Myoglobin 85.9 10.0-92.0 NG/ML Troponin I < 0.30 <0.30 NG/ML Pro-B-Type Natriuretic Peptide 346.0 H <75.0 PG/ML Total Protein 7.3 6.4-8.2 GM/DL Albumin 4.5 3.2-4.5 GM/DL Urine Color YELLOW Urine Clarity CLEAR Urine pH 7.0 5-9 Urine Specific [place] <=1.005 1.016-1.022 Urine Protein NEGATIVE NEGATIVE Urine Glucose (UA) NEGATIVE NEGATIVE Urine Ketones NEGATIVE NEGATIVE Urine Nitrite NEGATIVE NEGATIVE Urine Bilirubin NEGATIVE NEGATIVE Urine Urobilinogen 0.2 < = 1.0 MG/DL Urine Leukocyte Esterase NEGATIVE NEGATIVE Urine RBC (Auto) NEGATIVE NEGATIVE Urine RBC NONE /HPF Urine WBC RARE /HPF Urine Squamous Epithelial Cells 2-5 /HPF Urine Crystals NONE /LPF Urine Bacteria TRACE /HPF Urine Casts NONE /LPF Urine Mucus NEGATIVE /LPF Urine Culture Indicated NO My Orders Orders - LESA VICTOR MD Cbc With Automated Diff (05/05/21 14:46) Magnesium (05/05/21 14:46) Ekg Tracing (05/05/21 14:46) Comprehensive Metabolic Panel (05/05/21 14:46) Myoglobin Serum (05/05/21 14:46) Protime With Inr (05/05/21 14:46) Partial Thromboplastin Time (05/05/21 14:46) O2 (05/05/21 14:46) Monitor-Rhythm Ecg Trace Only (05/05/21 14:46) Ed Iv/Invasive Line Start (05/05/21 14:46) Troponin I Fs (05/05/21 14:46) Probnp Fs (05/05/21 14:46) Ua Culture If Indicated (05/05/21 14:59) Vital Signs/I&O 05/05/21 05/05/21 14:45 15:39 Temp 36.8 36.8 Pulse 71 71 Resp 18 18 B/P (MAP) 158/66 (96) 158/66 Pulse Ox 97 97 O2 Delivery Room Air Room Air Capillary Refill : Progress Note #1: Progress Note Obtain basic labs and urinalysis. Electrocardiogram to monitor her heart rate and rhythm. Placed on cardiac telemetry monitoring to continue to monitor her heart rate and rhythm. Progress Note #2: Progress Note CBC and Chemistry appear stable without acute significant abnormality. BP and heart rate have been stable here and no acute answer for her dizziness. Encourage her to follow up with Dr. Cloud and she likely will still need to adjust her meds some more but no signs of heart attack or other acute problems to account for her symptoms. UA clear and not showing infection. ECG Initial ECG Impression Date: May 05, 2021 Initial ECG Impression Time: 15:00 Initial ECG Rate: 62 Initial ECG Rhythm: Normal Sinus Initial ECG Comparisson: Unchanged Comment Normal sinus rhythm with a heart rate of 62 bpm. Probable left atrial enlargement. LVH with secondary repolarization changes. KS interval 181 ms. QT interval 430 ms with a QTc interval [address] elevation. Appears similar to prior tracings in the system. Departure Impression Primary Impression: Dizzy Additional Impression: Labile essential hypertension Disposition: 01 HOME, SELF-CARE Condition: Stable Departure-Patient Inst. Decision time for Depature: 15:37 Referrals: KETURAH ROMERO APRN (PCP) Primary Care Physician [facility] (Family) Primary Care Physician Patient Instructions: Dizziness, Adult ED Add. Discharge Instructions: Continue your current medicines. Stay well hydrated and get plenty of rest Follow up with Dr. Cloud and your primary care provider for continued concerns. LESA VICTOR MD May 05, 2021 15:06
[2021-05-05 15:14] LABS: PROTHROMBIN TIME PATIENT 13.4 SEC (12.2-14.7)
[2021-05-05 15:25] LABS: BILIRUBIN,TOTAL 0.3 MG/DL (0.1-1.0); CALCIUM 9.9 MG/DL (8.5-10.1); CREATININE SERUM 1.29 MG/DL (0.60-1.30); MAGNESIUM 1.9 MG/DL (1.6-2.4)
[2021-05-05 15:26] LABS: ALBUMIN 4.5 GM/DL (3.2-4.5); TOTAL PROTEIN 7.3 GM/DL (6.4-8.2)
[2021-05-05 15:39] VITALS: BP 158/66
[2021-05-05 15:54] LABS: BILIRUBIN,URINE NEGATIVE (NEGATIVE); CLARITY,URINE CLEAR; COLOR,URINE YELLOW; GLUCOSE, URINE (UA) NEGATIVE (NEGATIVE); KETONES,URINE NEGATIVE (NEGATIVE); LEUKOCYTE ESTERASE ,URINE NEGATIVE (NEGATIVE); NITRITE,URINE NEGATIVE (NEGATIVE); PROTEIN,URINE NEGATIVE (NEGATIVE)
[2021-05-05 15:58] LABS: BACTERIA,URINE TRACE /HPF; WBC,URINE RARE /HPF
== END 2021-05-05 16:05 | disposition home or self-care (01) ==
LOC: EDUNIT# 14:40 → ER FS 14:41
DX: R42 Dizziness and giddiness (principal); I10 Essential (primary) hypertension; E78.00 Pure hypercholesterolemia, unspecified; F41.9 Anxiety disorder, unspecified; F31.9 Bipolar disorder, unspecified; Z79.82 Long term (current) use of aspirin; Z79.899 Other long term (current) drug therapy
CPT/HCPCS: 36415; 80053; 81000; 83735; 83874; 83880; 84484; 85025; 85610; 85730; 93005; 93041

== ENCOUNTER → 2021-06-14 | Outpatient (CLI) | payer BC ==
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
== END ==
LOC: RAD 08:00
PROVIDERS: ATTEND Physician Assistant
DX: M47.812 Spondylosis without myelopathy or radiculopathy, cervical region (principal); M48.02 Spinal stenosis, cervical region; V89.2XXA Person injured in unspecified motor-vehicle accident, traffic, initial encounter
CPT/HCPCS: 72141

== ENCOUNTER → 2021-10-18 | Outpatient (CLI) | payer BC ==
[~2021-10-18] VITALS: Ht 167 cm; Wt 86.0 kg
[~2021-10-18] MED LIST changes: +CATHETER FLUSH 10 ML SYR IVP PRN
[2021-10-18 13:06] VITALS: BP 177/82
--- NOTE | 2021-10-18 15:11 | Cardiology Stress Test Report ---
Stress Test Report Date of Procedure/Referring: Date of Procedure: Oct 18, 2021 PCP Sandra Cortes Aprn Admitting Physician Admitting Physician: Attending Physician: Amos Cloud MD Indications: HTN Baseline Heart Rate: 66 Baseline Blood Pressure: Blood Pressure Systolic: 177 Blood Pressure Diastolic: 82 Vital Signs Date Time Temp Pulse Resp B/P (MAP) Pulse Ox O2 Delivery O2 Flow Rate FiO2 10/18/21 13:06 64 20 177/82 (113) 98 Room Air Baseline Vital Signs Vital Signs Date Time Temp Pulse Resp B/P (MAP) Pulse Ox O2 Delivery O2 Flow Rate FiO2 10/18/21 13:06 64 20 177/82 (113) 98 Room Air Baseline EKG: Baseline EKG: NSR Summary: After explaining the procedure and details to the patient, she signed the consent and was brought to the stress nuclear laboratory. Patient exercised on standard Juve protocol, EKG, heart rate and blood pressure were monitored continuously, resting and stress doses of radio tracer were injected, imaging was acquired and reviewed in the short axis, horizontal long axis and vertical long axis views Patient was able to exercise for a total of 3.40 minutes on Juve protocol, METs 5.4 Maximum heart rate 149 Maximum blood pressure 215/100 Stress EKG, Minimal nondiagnostic changes Recovery EKG, Return to baseline TID: 1.22 SSS: 1 SDS: 1 EF: 54 Conclusion: 1. Fair exercise tolerance for a total of 3 minutes and 40 seconds on standard Juve protocol, 5.4 METS achieving 94% of maximal expected heart rate 2. Appropriate heart rate response to exercise with hypertensive response to exercise with peak blood pressure 215/100 return to baseline during recovery 3. No significant ischemia or infarction on stress images 4. Normal left ventricular size, ejection fraction 54% Copy Copies To 1: [facility] [place]OU[place] MD Oct 18, 2021 15:11
== END ==
LOC: CARD 10:10
PROVIDERS: ATTEND Internal Medicine Cardiovascular Disease
DX: I10 Essential (primary) hypertension (principal)
CPT/HCPCS: 78452; 93017; 93306; A9502

== ENCOUNTER 2022-11-08 15:34 | Emergency (ER) | payer BC, OTHER ==
[~2022-11-08] VITALS: Ht 167.7 cm; Wt 86.2 kg
[~2022-11-08 15:34] MED LIST changes: -CATHETER FLUSH 10 ML SYR IVP PRN
--- NOTE | 2022-11-08 15:58 | ED Headache ---
General Stated Complaint: HEADACHE Source: patient History of Present Illness Date Seen by Provider: Nov 08, 2022 Time Seen by Provider: 15:36 Initial Comments 62-year-old female presenting with complaints of headache since being hit on the left orthodox by an elevator door October 06, 2022. She states that she has had some blurred vision out of the left eye as well. She was evaluated at the walk-in care clinic after the injury and told that she had a concussion. She had spent the last 3 weeks and [facility] visiting her family. Today she felt like the headache was more severe on the left side of her head and was not going away with Tylenol like it had been previously. When she called to get an appointment with her primary care provider out of [facility] they told her that the next available appointment was in December and advised the patient go to the emergency department. She denies any nausea, vomiting, cough, fever, chills, shortness of breath, difficulty swallowing, numbness or tingling in her arms or legs. She last took Tylenol around 10 AM this morning. Prior Headaches/Recent Trauma: head trauma > 24 hrs ago Associated Symptoms: confusion (Feels like she is more confused today and having trouble concentrating); No fatigue, No facial pain, No fever/chills, No flushing, No loss of consciousness, No nausea/vomiting, No nasal congestion, No nasal drainage, No numbness in legs/feet, No rash, No seizures, No sinus infection, No stiff neck, No weakness Allergies and Home Medications Allergies Coded Allergies: morphine (Unverified Allergy, Unknown, 12/24/19) Patient Home Medication List Home Medication List Reviewed: Yes Allopurinol (Zyloprim) 300 Mg Tab, 300 MG PO DAILY, (Reported) Entered as Reported by: ANN JENSEN on 01/11/11 1640 Aspirin (Aspirin Ec 81 Mg) 81 Mg Tabec, 81 MG PO DAILY, (Reported) Entered as Reported by: ANN JENSEN on 01/11/11 1640 Atenolol (Tenormin 50 Mg) 50 Mg Tablet, 1 EACH PO DAILY, (Reported) Entered as Reported by: ANN JENSEN on 01/11/11 1640 Atorvastatin Calcium (Lipitor 40MG) 40 Mg Tablet, 1 EACH PO DAILY, (Reported) Entered as Reported by: ANN JENSEN on 01/11/11 1640 Bupropion Hcl (Wellbutrin Xl) 150 Mg Tab.sr.24h, 1 TAB PO DAILY, (Reported) Entered as Reported by: ANN JENSEN on 01/11/11 1640 Calcium Citrate/Vitamin D3 (Citracal + D Maximum Caplet) 1 Each Tablet, 1 EACH PO DAILY, (Reported) Entered as Reported by: ANN JENSEN on 01/11/11 1640 Cyclobenzaprine Hcl (Cyclobenzaprine Hcl) 10 Mg Tablet, 1 EACH PO Q8HR PRN, (Reported) Entered as Reported by: ANN JENSEN on 01/11/11 1640 Estradiol (Estradiol) 1 Mg Tablet, 1 MG PO DAILY, (Reported) Entered as Reported by: ANN JENSEN on 01/11/11 1640 Flaxseed Oil (Flax Seed Oil) 1,000 Mg Capsule, 2 GM PO DAILY, (Reported) Entered as Reported by: ANN JENSEN on 01/11/11 1640 Furosemide (Furosemide) 40 Mg Tablet, 1 EACH PO DAILY, (Reported) Entered as Reported by: ANN JENSEN on 01/11/11 1640 Hydrocodone Bit/Acetaminophen (Hydrocodon-Acetaminophen 5-500) 1 Each Tablet, 1 EACH PO Q4 PRN, (Reported) Entered as Reported by: ANN JENSEN on 01/11/11 1640 Ketorolac Tromethamine (Ketorolac Tromethamine) 10 Mg Tablet, 10 MG PO Q6H Prescribed by: JACOB GUTIERREZ on 09/08/20306 Lutein (Lutein) 10 Mg Tablet, 20 MG PO DAILY, (Reported) Entered as Reported by: ANN JENSEN on 01/11/11 1640 Magnesium Oxide (Magnesium Oxide) 400 Mg Tablet, 400 MG PO BID, (Reported) Entered as Reported by: ANN JENSEN on 01/11/11 1640 Naproxen Sodium (Aleve) 220 Mg Capsule, 2 TAB PO PRN, (Reported) Entered as Reported by: ANN JENSEN on 01/11/11 1640 Ondansetron (Ondansetron Odt) 4 Mg Tab.rapdis, 4 MG PO Q4H Prescribed by: JACOB GUTIERREZ on 09/08/20 030 Pantoprazole Sodium (Protonix) 40 Mg Tablet.dr, 40 MG PO DAILY Prescribed by: JACOB GUTIERREZ on 09/08/20 0307 Potassium Chloride (Klor-Con 10) 10 Meq Tablet.sa, 10 MEQ PO BID PRN, (Reported) Entered as Reported by: ANN JENSEN on 01/11/111639 Pyridoxine/Melatonin (Melatonin 3 Mg Tablet) 1 Tab Tablet, 1 TAB PO DAILY, (Reported) Entered as Reported by: ANN JENSEN on 01/11/111639 Quetiapine Fumarate (Seroquel Xr) 50 Mg Tab.sr.24h, 50 MG PO HS, (Reported) Entered as Reported by: ANN JENSEN on 01/11/11 1640 Sennosides/Docusate Sodium (Stool Softener Tablet) 1 Each Tablet, 2 EACH PO HS, (Reported) Entered as Reported by: ANN JENSEN on 01/11/111639 Solifenacin Succinate (Vesicare) 10 Mg Tablet, 10 MG PO DAILY, (Reported) Entered as Reported by: ANN JENSEN on 01/11/111639 Timolol Maleate (Timolol Maleate 0.25%) 15 Ml Btl, 0.5 % OU BID, (Reported) Entered as Reported by: ANN JENSEN on 01/11/111639 Triazolam (Halcion) 0.25 Mg Tablet, 0.5 MG PO HS, (Reported) Entered as Reported by: ANN JENSEN on 01/11/111639 Vitamin B Complex (B Complex) 1 Cap Capsule, 1 CAP PO 1700, (Reported) Entered as Reported by: ANN JENSEN on 01/11/111639 Vitamin E Acetate (Vitamin E) 400 Unit Capsule, 400 UNIT PO DAILY, (Reported) Entered as Reported by: ANN JENSEN on 01/11/111639 Ziprasidone (Geodon 80 Mg Cap) 80 Mg Cap, 160 MG PO 1700, (Reported) Entered as Reported by: ANN JENSEN on 01/11/11 1640 [Scott And Nail Vit] , 2 TAB PO DAILY, (Reported) Entered as Reported by: ANN JENSEN on 01/11/11 1640 [Vitamin B12 ] , 500 MCG SL DAILY, (Reported) Entered as Reported by: ANN JENSEN on 01/11/111639 Review of Systems Review of Systems Constitutional: No chills, No diaphoresis, No dizziness, No fever Eyes: Blurred Vision (Left eye); Denies Photophobia Ears, Nose, Mouth, Throat: denies ear pain, denies ear discharge, denies nose pain, denies nose discharge, denies epistaxis, denies mouth pain Respiratory: No cough, No short of breath Cardiovascular: No palpitations Gastrointestinal: No nausea, No vomiting Genitourinary: No dysuria Musculoskeletal: no symptoms reported Skin: No rash Psychiatric/Neurological: Headache; Denies Numbness, Denies Paresthesia, Denies Weakness Past Xiwwxxe-Qqaisf-Kwqmcc Hx Immunizations Up To Date Tetanus Booster (TDap): Unknown First/Initial COVID19 Vaccinat: 2020 Second COVID19 Vaccination Dmitri: 2020 Seasonal Allergies Seasonal Allergies: No Past Medical History Surgery/Hospitalization HX: Hypertension, bipolar Surgeries: Yes Appendectomy, Gallbladder, Hysterectomy, Orthopedic, Tonsillectomy Respiratory: No Cardiac: Yes High Cholesterol, Hypertension, Palpitations Neurological: No 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 oz. kg; 30.83 BMI Method: General Appearance: WD/WN, no apparent distress HEENT: PERRL/EOMI, normal ENT inspection, TMs normal, pharynx normal, other (Negative chambers sign, negative raccoon sign, no CSF otorrhea, no CSF rhinorrhea, no hemotympanums) Neck: non-tender, full range of motion, supple, normal inspection Cardiovascular: normal peripheral pulses, regular rate, rhythm Respiratory: chest non-tender, lungs clear, normal breath sounds, no respiratory distress, no accessory muscle use Psychiatric: alert, oriented x 3 Crainal Nerves: normal hearing, normal speech, PERRL Coordination/Gait: normal gait Motor/Sensory: no motor deficit, no sensory deficit Skin: normal color, warm/dry Progress/Results/Core Measures Results/Orders My Orders Orders - LESA VICTOR MD Ct Head Wo (11/08/22 15:49) Vital Signs/I&O 11/08/22 15:37 Temp 36.6 Pulse 81 Resp 18 B/P (MAP) 187/90 (122) O2 Delivery Room Air Progress Progress Note #1: Progress Note Plan patient having reported increased headache and trouble concentrating we will order a CT scan of the head without IV contrast. This may all be secondary to her head injury and she might even have postconcussive migraines from the head injury. If there is no acute intracranial process seen on the CT then plan to try and continue to treat pain and recommend follow-up with the primary care provider. Progress Note #2: Progress Note No acute findings on the CT head without IV contrast. Specifically no intracranial hemorrhage or mass and no obvious skull fracture. Counseled patient on using NSAIDs as well as heat and could try alternating with cold to help with pain. Given information about alternative therapies for headache treatment at home. Advised she could try using some Excedrin Migraine o [id number]. Check back with the clinic for continued management and care. Diagnostic Imaging Diagonstic Imaging: CT Plain Films/CT/US/NM/MRI: head Comments NAME: KEYA CARTWRIGHT MED REC#: [id number] PT STATUS: REG ER : 1960 PHYSICIAN: LESA VICTOR MD ADMIT DATE: 11/08/22/ER FS Draft Date of Exam:11/08/22 CT HEAD WO PROCEDURE: CT head without contrast. TECHNIQUE: Multiple contiguous axial images were obtained through the brain without the use of intravenous contrast. Auto Exposure Controls were utilized during the CT exam to meet ALARA standards for radiation dose reduction. INDICATION: Head injury resulting in worsening headache. COMPARISON: 03/12/2020 CT HEAD: CT images of the head were obtained. FINDINGS: Ventricles and sulci are within normal limits for size. There is no intracranial hemorrhage identified. There is no abnormal mass effect or shift of midline structures. IMPRESSION: Unremarkable CT of the head. Dictated on workstation # [id number] Dict: 11/08/22 1601 Trans: 11/08/22 1603 [facility] [id number] Interpreted by: MECCA COWART MD Electronically signed by: Reviewed: Reviewed by Me Departure Impression Primary Impression: Left-sided headache Disposition: HOME, SELF-CARE Condition: Stable Departure-Patient Inst. Decision time for Depature: 16:06 Referrals: KETURAH ROMERO APRN (PCP) Primary Care Physician [facility] (Family) Primary Care Physician Patient Instructions: Headache, Adult ED, Home Headache Remedies Add. Discharge Instructions: Follow up with [facility] about headaches since having head injury October 06, 2022. CT scan of your head today does not show any bleeding, mass or acute process to explain why your head hurts more today. Try resting in a cool dark room. Try applying heat or hot pack to the left side of head to see if that helps with the pain. Consider taking anti-inflammatory medicine such as Ibuprofen or Naproxen to try and help with the pain. LESA VICTOR MD Nov 08, 2022 15:58
--- NOTE | 2022-11-08 16:03 | Diagnostic Imaging Report ---
PROCEDURE: CT head without contrast. TECHNIQUE: Multiple contiguous axial images were obtained through the brain without the use of intravenous contrast. Auto Exposure Controls were utilized during the CT exam to meet ALARA standards for radiation dose reduction. INDICATION: Head injury resulting in worsening headache. COMPARISON: 03/12/2020 CT HEAD: CT images of the head were obtained. FINDINGS: Ventricles and sulci are within normal limits for size. There is no intracranial hemorrhage identified. There is no abnormal mass effect or shift of midline structures. IMPRESSION: Unremarkable CT of the head. Dictated by: Dictated on workstation # [id number]
[2022-11-08 16:27] VITALS: BP 138/89
== END 2022-11-08 16:27 | disposition home or self-care (01) ==
LOC: EDUNIT# 15:34 → ER FS 15:35
DX: R51.9 Headache, unspecified (principal); W22.8XXA Striking against or struck by other objects, initial encounter
CPT/HCPCS: 70450

== ENCOUNTER 2022-11-14 07:55 | Emergency (ER) | payer OTHER ==
[~2022-11-14] VITALS: Ht 167.7 cm; Wt 83.9 kg
[2022-11-14 07:57] VITALS: BP 151/59
[2022-11-14] MEDS ORDERED: 1/2 NS IV SOLUTION 1000 ML 1,000 ML IV STA (08:00)
--- NOTE | 2022-11-14 08:00 | ED General ---
General Chief Complaint: Cardiac/General Problems Stated Complaint: LIGHTHEADED History of Present Illness Date Seen by Provider: Nov 14, 2022 Time Seen by Provider: 07:57 Initial Comments 62 yr F is here with c/o taking Zanaflex today morning for back pain, and feeling light headed after taking it. Pt does not take this medication regularly, only once in a while. Pt has no other symptoms. Two hours after taking the medication, she started feeling better, but wanted to come in to the ER to make sure. No symptoms in the ER. Denies chest pain, SOB, palpitations, fever, cough. Allergies and Home Medications Allergies Coded Allergies: morphine (Unverified Allergy, Unknown, 12/24/19) Patient Home Medication List Home Medication List Reviewed: Yes Allopurinol (Zyloprim) 300 Mg Tab, 300 MG PO DAILY, (Reported) Entered as Reported by: ANN JNESEN on 01/11/11 1640 Aspirin (Aspirin Ec 81 Mg) 81 Mg Tabec, 81 MG PO DAILY, (Reported) Entered as Reported by: ANN JENSEN on 01/11/11 1640 Atenolol (Tenormin 50 Mg) 50 Mg Tablet, 1 EACH PO DAILY, (Reported) Entered as Reported by: ANN JENSEN on 01/11/11 1640 Atorvastatin Calcium (Lipitor 40MG) 40 Mg Tablet, 1 EACH PO DAILY, (Reported) Entered as Reported by: ANN JENSEN on 01/11/11 1640 Bupropion Hcl (Wellbutrin Xl) 150 Mg Tab.sr.24h, 1 TAB PO DAILY, (Reported) Entered as Reported by: ANN JENSEN on 01/11/11 1640 Calcium Citrate/Vitamin D3 (Citracal + D Maximum Caplet) 1 Each Tablet, 1 EACH PO DAILY, (Reported) Entered as Reported by: ANN JENSEN on 01/11/11 1640 Cyclobenzaprine Hcl (Cyclobenzaprine Hcl) 10 Mg Tablet, 1 EACH PO Q8HR PRN, (Reported) Entered as Reported by: ANN JENSEN on 01/11/11 1640 Estradiol (Estradiol) 1 Mg Tablet, 1 MG PO DAILY, (Reported) Entered as Reported by: ANN JENSEN on 01/11/11 1640 Flaxseed Oil (Flax Seed Oil) 1,000 Mg Capsule, 2 GM PO DAILY, (Reported) Entered as Reported by: ANN JENSEN on 01/11/111639 Furosemide (Furosemide) 40 Mg Tablet, 1 EACH PO DAILY, (Reported) Entered as Reported by: ANN JENSEN on 01/11/111639 Hydrocodone Bit/Acetaminophen (Hydrocodon-Acetaminophen 5-500) 1 Each Tablet, 1 EACH PO Q4 PRN, (Reported) Entered as Reported by: ANN JENSEN on 01/11/111639 Ketorolac Tromethamine (Ketorolac Tromethamine) 10 Mg Tablet, 10 MG PO Q6H Prescribed by: JACOB GUTIERREZ on 09/08/20 030 Lutein (Lutein) 10 Mg Tablet, 20 MG PO DAILY, (Reported) Entered as Reported by: ANN JENSEN on 01/11/111639 Magnesium Oxide (Magnesium Oxide) 400 Mg Tablet, 400 MG PO BID, (Reported) Entered as Reported by: ANN JENSEN on 01/11/111639 Naproxen Sodium (Aleve) 220 Mg Capsule, 2 TAB PO PRN, (Reported) Entered as Reported by: ANN JENSEN on 01/11/111639 Ondansetron (Ondansetron Odt) 4 Mg Tab.rapdis, 4 MG PO Q4H Prescribed by: JACOB GUTIERREZ on 09/08/20306 Pantoprazole Sodium (Protonix) 40 Mg Tablet.dr, 40 MG PO DAILY Prescribed by: JACOB GUTIERREZ on 09/08/20306 Potassium Chloride (Klor-Con 10) 10 Meq Tablet.sa, 10 MEQ PO BID PRN, (Reported) Entered as Reported by: ANN JENSEN on 01/11/111639 Pyridoxine/Melatonin (Melatonin 3 Mg Tablet) 1 Tab Tablet, 1 TAB PO DAILY, (Reported) Entered as Reported by: ANN JENSEN on 01/11/111639 Quetiapine Fumarate (Seroquel Xr) 50 Mg Tab.sr.24h, 50 MG PO HS, (Reported) Entered as Reported by: ANN JENSEN on 01/11/111639 Sennosides/Docusate Sodium (Stool Softener Tablet) 1 Each Tablet, 2 EACH PO HS, (Reported) Entered as Reported by: ANN JENSEN on 01/11/111639 Solifenacin Succinate (Vesicare) 10 Mg Tablet, 10 MG PO DAILY, (Reported) Entered as Reported by: ANN JENSEN on 01/11/111639 Timolol Maleate (Timolol Maleate 0.25%) 15 Ml Btl, 0.5 % OU BID, (Reported) Entered as Reported by: ANN JENSEN on 01/11/111639 Triazolam (Halcion) 0.25 Mg Tablet, 0.5 MG PO HS, (Reported) Entered as Reported by: ANN JENSEN on 01/11/111639 Vitamin B Complex (B Complex) 1 Cap Capsule, 1 CAP PO 1700, (Reported) Entered as Reported by: ANN JENSEN on 01/11/111639 Vitamin E Acetate (Vitamin E) 400 Unit Capsule, 400 UNIT PO DAILY, (Reported) Entered as Reported by: ANN JENSEN on 01/11/111639 Ziprasidone (Geodon 80 Mg Cap) 80 Mg Cap, 160 MG PO 1700, (Reported) Entered as Reported by: ANN JENSEN on 01/11/111639 [Scott And Nail Vit] , 2 TAB PO DAILY, (Reported) Entered as Reported by: ANN JENSEN on 01/11/111639 [Vitamin B12 ] , 500 MCG SL DAILY, (Reported) Entered as Reported by: ANN JENSEN on 01/11/111639 Review of Systems Review of Systems Constitutional: no symptoms reported EENTM: no symptoms reported Respiratory: no symptoms reported Cardiovascular: no symptoms reported Gastrointestinal: no symptoms reported Genitourinary: no symptoms reported Musculoskeletal: no symptoms reported Skin: no symptoms reported Psychiatric/Neurological: Other (light headed) Hematologic/Lymphatic: No Symptoms Reported Immunological/Allergic: no symptoms reported Past Ztwxrki-Kxyjln-Cjkxoe Hx Immunizations Up To Date Tetanus Booster (TDap): Unknown First/Initial COVID19 Vaccinat: 2020 Second COVID19 Vaccination Dmitri: 2020 Seasonal Allergies Seasonal Allergies: No Past Medical History Surgery/Hospitalization HX: Hypertension, bipolar Surgeries: Yes Appendectomy, Gallbladder, Hysterectomy, Orthopedic, Tonsillectomy Respiratory: No Cardiac: Yes High Cholesterol, Hypertension, Palpitations Neurological: No 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 oz. kg; 30.00 BMI Method: General Appearance: No Apparent Distress, WD/WN HEENT: PERRL/EOMI, TMs Normal, Normal ENT Inspection Neck: Full Range of Motion, Normal Inspection, Non Tender, Supple Respiratory: Lungs Clear, Normal Breath Sounds Cardiovascular: Regular Rate, Rhythm, No Edema Gastrointestinal: Normal Bowel Sounds, Non Tender, Soft Back: Normal Inspection Neurologic/Psychiatric: Alert, Oriented x3, No Motor/Sensory Deficits, Normal Mood/Affect, winder fixer II-XII Norm as Tested Skin: Normal Color Progress/Results/Core Measures Suspected Sepsis SIRS Temperature: Pulse: Respiratory Rate: Blood Pressure / Mean: Results/Orders My Orders Orders - LULA HARMON MD 1/2 Ns Iv Solution 1000 Ml (1/2 Ns Iv So (11/14/22 08:00) Vital Signs/I&O 11/14/22 07:57 Temp 36.6 Pulse 58 Resp 18 B/P (MAP) 151/59 (89) Pulse Ox 96 O2 Delivery Room Air Capillary Refill : Progress Note : Progress Note 1. MEDICATION SIDE EFFECT: LIGHT HEADEDNESS DUE TO ZANAFLEX: -Lightheadedness is a known side effect of Zanaflex. It is also possible that since patient took the Zanaflex along with her normal blood pressure medications, that it may have had a synergistic effect on lowering the blood pressure and triggering the dizziness. In the ER patient's vitals have been st able without any cause for concern. Patient's symptoms in the ER have resolved. - 1/2 normal saline bolus given in ER - Advised not to take Zanaflex - Follow up with PCP within 3 to 7 days -The patient was seen in the ED, and treated appropriately to presentation at a specific point in time. Patient is informed that there is a possibility that disease and illness can evolve and change in acuity rapidly or slowly after patient is discharged from the ER. Precautionary advice given to the patient for immediate return to ER if symptoms worsen or do not resolve, and to seek emergency care sooner rather than later. Pt also advised on the importance of PCP follow up and compliance with management and follow up plan with PCP and/or specialist, as this is part of the management plan. Pt verbally expressed understanding. Departure Impression Primary Impression: Medication side effect Additional Impression: Lightheadedness Disposition: 01 HOME, SELF-CARE Condition: Improved Departure-Patient Inst. Referrals: KETURAH ROMERO APRN (PCP) Primary Care Physician [facility] (Family) Primary Care Physician Patient Instructions: Adverse Drug Reactions, Adult (DC), Side effects from medicines Add. Discharge Instructions: - Advised not to take Zanaflex - Follow up with PCP within 3 to 7 days All discharge instructions reviewed with patient and/or family. Voiced understanding. LULA HARMON MD Nov 14, 2022 07:59
== END 2022-11-14 08:49 | disposition home or self-care (01) ==
LOC: EDUNIT# 07:55 → ER FS 07:56
DX: R42 Dizziness and giddiness (principal); T42.8X5A Adverse effect of antiparkinsonism drugs and other central muscle-tone depressants, initial encounter

== ENCOUNTER 2023-01-29 17:55 | Emergency (ER) | payer OTHER ==
[~2023-01-29] VITALS: Ht 167 cm; Wt 85.0 kg
[2023-01-29] MEDS ORDERED: diphenhydrAMINE 25 MG TABLET PO ONE (18:00)
[2023-01-29] MEDS ORDERED: HYDR-700 PO (18:08)
--- NOTE | 2023-01-29 18:08 | ED General ---
General Chief Complaint: General Problems/Pain Stated Complaint: ANXIETY Nursing Triage Note: Patient has been brought to ER by EMS from the urgent care with cc of itching that started yesterday. She reports starting doxycycline on Saturday and went to urgent care for evaluation of the itiching. At urgent care she was very anxious and EMS was called for evaluation. Source of Information: Patient, EMS Exam Limitations: No Limitations History of Present Illness Date Seen by Provider: Jan 29, 2023 Time Seen by Provider: 17:56 Initial Comments 62yoF with PMH of anxiety and recent left foot surgery c/b infection now on day 3 of doxycycline coming in via EMS from the urgent care do to concerns for allergic reaction. The patient started the antibiotic roughly 3 days ago and had her morning dose today. She felt itchiness earlier, never had any rash, shortness of breath, wheezing, abdominal pain, nausea, vomiting, or any other concerns. She was at the urgent care for 2 hours, no medications given, patient transferred here afterwards. She states that she feels very anxious, took half a Klonopin before going to the urgent care. She states she does deal with anxiety regularly. She states the wound on her foot is looking a lot better. Allergies and Home Medications Allergies Coded Allergies: morphine (Unverified Allergy, Unknown, 12/24/19) Patient Home Medication List Home Medication List Reviewed: Yes Allopurinol (Zyloprim) 300 Mg Tab, 300 MG PO DAILY, (Reported) Entered as Reported by: ANN JENSEN on 01/11/11 1640 Aspirin (Aspirin Ec 81 Mg) 81 Mg Tabec, 81 MG PO DAILY, (Reported) Entered as Reported by: ANN JENSEN on 01/11/11 1640 Atenolol (Tenormin 50 Mg) 50 Mg Tablet, 1 EACH PO DAILY, (Reported) Entered as Reported by: ANN JENSEN on 01/11/11 1640 Atorvastatin Calcium (Lipitor 40MG) 40 Mg Tablet, 1 EACH PO DAILY, (Reported) Entered as Reported by: ANN JENSEN on 01/11/11 1640 Bupropion Hcl (Wellbutrin Xl) 150 Mg Tab.sr.24h, 1 TAB PO DAILY, (Reported) Entered as Reported by: ANN JENSEN on 01/11/11 1640 Calcium Citrate/Vitamin D3 (Citracal + D Maximum Caplet) 1 Each Tablet, 1 EACH PO DAILY, (Reported) Entered as Reported by: ANN JENSEN on 01/11/11 1640 Cyclobenzaprine Hcl (Cyclobenzaprine Hcl) 10 Mg Tablet, 1 EACH PO Q8HR PRN, (Reported) Entered as Reported by: ANN JENSEN on 01/11/11 1640 Estradiol (Estradiol) 1 Mg Tablet, 1 MG PO DAILY, (Reported) Entered as Reported by: ANN JENSEN on 01/11/111639 Flaxseed Oil (Flax Seed Oil) 1,000 Mg Capsule, 2 GM PO DAILY, (Reported) Entered as Reported by: ANN JENSEN on 01/11/111639 Furosemide (Furosemide) 40 Mg Tablet, 1 EACH PO DAILY, (Reported) Entered as Reported by: ANN JENSEN on 01/11/111639 Hydrocodone Bit/Acetaminophen (Hydrocodon-Acetaminophen 5-500) 1 Each Tablet, 1 EACH PO Q4 PRN, (Reported) Entered as Reported by: ANN JENSEN on 01/11/111639 Hydroxyzine HCl (Hydroxyzine HCl) 25 Mg Tablet, 25 MG PO BID PRN for ITCHING Prescribed by: LORENA CLINTON on 01/29/23 180 Ketorolac Tromethamine (Ketorolac Tromethamine) 10 Mg Tablet, 10 MG PO Q6H Prescribed by: JACOB GUTIERREZ on 09/08/20306 Lutein (Lutein) 10 Mg Tablet, 20 MG PO DAILY, (Reported) Entered as Reported by: ANN JENSEN on 01/11/11 1640 Magnesium Oxide (Magnesium Oxide) 400 Mg Tablet, 400 MG PO BID, (Reported) Entered as Reported by: ANN JENSEN on 01/11/11 1640 Naproxen Sodium (Aleve) 220 Mg Capsule, 2 TAB PO PRN, (Reported) Entered as Reported by: ANN JENSEN on 01/11/11 1640 Ondansetron (Ondansetron Odt) 4 Mg Tab.rapdis, 4 MG PO Q4H Prescribed by: JACOB GUTIERREZ on 09/08/20306 Pantoprazole Sodium (Protonix) 40 Mg Tablet.dr, 40 MG PO DAILY Prescribed by: JACOB GUTIERREZ on 09/08/20306 Potassium Chloride (Klor-Con 10) 10 Meq Tablet.sa, 10 MEQ PO BID PRN, (Reported) Entered as Reported by: ANN JENSEN on 01/11/111639 Pyridoxine/Melatonin (Melatonin 3 Mg Tablet) 1 Tab Tablet, 1 TAB PO DAILY, (Reported) Entered as Reported by: ANN JENESN on 01/11/111639 Quetiapine Fumarate (Seroquel Xr) 50 Mg Tab.sr.24h, 50 MG PO HS, (Reported) Entered as Reported by: ANN JENSEN on 01/11/111639 Sennosides/Docusate Sodium (Stool Softener Tablet) 1 Each Tablet, 2 EACH PO HS, (Reported) Entered as Reported by: ANN JENSEN on 01/11/111639 Solifenacin Succinate (Vesicare) 10 Mg Tablet, 10 MG PO DAILY, (Reported) Entered as Reported by: ANN JENSEN on 01/11/111639 Timolol Maleate (Timolol Maleate 0.25%) 15 Ml Btl, 0.5 % OU BID, (Reported) Entered as Reported by: ANN JENSEN on 01/11/111639 Triazolam (Halcion) 0.25 Mg Tablet, 0.5 MG PO HS, (Reported) Entered as Reported by: ANN JENSEN on 01/11/111639 Vitamin B Complex (B Complex) 1 Cap Capsule, 1 CAP PO 1700, (Reported) Entered as Reported by: ANN JENSEN on 01/11/111639 Vitamin E Acetate (Vitamin E) 400 Unit Capsule, 400 UNIT PO DAILY, (Reported) Entered as Reported by: ANN JENSEN on 01/11/111639 Ziprasidone (Geodon 80 Mg Cap) 80 Mg Cap, 160 MG PO 1700, (Reported) Entered as Reported by: ANN JENSEN on 01/11/111639 [Scott And Nail Vit] , 2 TAB PO DAILY, (Reported) Entered as Reported by: ANN JENSEN on 01/11/111639 [Vitamin B12 ] , 500 MCG SL DAILY, (Reported) Entered as Reported by: ANN JENSEN on 01/11/111639 Review of Systems Review of Systems Constitutional: No fever EENTM: no symptoms reported Respiratory: no symptoms reported Cardiovascular: no symptoms reported Gastrointestinal: no symptoms reported Genitourinary: no symptoms reported Musculoskeletal: no symptoms reported Skin: see HPI Psychiatric/Neurological: No Symptoms Reported Hematologic/Lymphatic: No Symptoms Reported Past Vesdbhz-Pztogx-Ottzge Hx Patient Social History Tobacco Use?: No Use of E-Cig and/or Vaping dev: No Substance use?: No Alcohol Use?: No Immunizations Up To Date Tetanus Booster (TDap): Unknown First/Initial COVID19 Vaccinat: 2020 Second COVID19 Vaccination Dmitri: 2020 Third COVID19 Vaccination Date: 2020 Seasonal Allergies Seasonal Allergies: No Past Medical History Surgery/Hospitalization HX: Hypertension, bipolar, heart murmur, palpitations, bradycardia Surgeries: Yes Appendectomy, Gallbladder, Hysterectomy, Orthopedic, Tonsillectomy Respiratory: No Cardiac: Yes High Cholesterol, Hypertension, Palpitations Neurological: No Reproductive Disorders: No [employer] History: Menopausal Sexually Transmitted Disease: No Genitourinary: No Gastrointestinal: Yes (S/P ALIS AND APPY) Musculoskeletal: Yes (ARTHRITIS) Endocrine: No HEENT: No Cancer: No Psychosocial: Yes (MOOD DISORDER) Anxiety, Bipolar, Depression Integumentary: No Blood Disorders: No Physical Exam Vital Signs Vital Signs - First Documented 01/29/23 18:00 Pulse 114 Resp 20 B/P (MAP) 197/71 (113) Pulse Ox 98 O2 Delivery Room Air Capillary Refill : Height, Weight, BMI Height: '" Weight: lbs. oz. kg; 30.00 BMI Method: General Appearance: WD/WN, Anxious Eyes: Bilateral Eye Normal Inspection, Bilateral Eye PERRL, Bilateral Eye EOMI HEENT: PERRL/EOMI, Normal ENT Inspection, Pharynx Normal Neck: Full Range of Motion, Normal Inspection, Non Tender, Supple Respiratory: Chest Non Tender, Lungs Clear, Normal Breath Sounds, No Accessory Muscle Use, No Respiratory Distress Cardiovascular: Regular Rate, Rhythm, No Edema, Normal Peripheral Pulses Gastrointestinal: Normal Bowel Sounds, Non Tender, Soft Back: Normal Inspection, No CVA Tenderness Extremity: Normal Capillary Refill, Normal Inspection, Normal Range of Motion, Non Tender, No Calf Tenderness, Other (Left foot surgical wound clean, dry, intact) Neurologic/Psychiatric: Alert, No Motor/Sensory Deficits, Normal Mood/Affect Skin: Normal Color, Warm/Dry; No Rash Progress/Results/Core Measures Suspected Sepsis SIRS Temperature: Pulse: 114 Respiratory Rate: 20 Blood Pressure 197 /71 Mean: 113 Results/Orders My Orders Orders - LORENA CLINTON MD Diphenhydramine Tablet (Diphenhydramine (01/29/23 18:00) Lorazepam Injection (Lorazepam Injection (01/29/23 18:00) Medications Given in ED Current Medications Medications Dose Ordered Sig/Ren Route Start Time Stop Time Status Last Admin Dose Admin Diphenhydramine HCl 25 mg ONCE ONCE PO 01/29/23 18:00 01/29/23 18:01 DC 01/29/23 18:04 25 MG Vital Signs/I&O 01/29/23 01/29/23 18:00 18:40 Pulse 114 91 Resp 20 16 B/P (MAP) 197/71 (113) 170/57 Pulse Ox 98 98 O2 Delivery Room Air Room Air Capillary Refill : Blood Pressure Mean: 113 Progress Note : Progress Note 62-year-old female with above history coming in due to initially concerns for allergic reaction with some pruritus earlier, it has since improved. She never had any rash, wheezing, or any clinical signs for significant allergic reaction let alone anaphylaxis. We will give her some oral Benadryl here to help with itching. I am not so sure that she even has an allergy to doxycycline, but I think it is reasonable to stop taking it and change antibiotics. 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 We will give her some Ativan via the IV that EMS started as well. She is not having any chest pain, shortness of breath, and no other concerning findings in regards to her anxiety. She does have thyroid issues, but she gets her thyroid labs regularly checked and they are normal. I believe she is otherwise stable for discharge with outpatient follow-up. Prescription will be sent for hydroxyzine. She was sent home with strict return precautions. Departure Impression Primary Impression: Pruritic condition Disposition: HOME, SELF-CARE Condition: Stable Departure-Patient Inst. Decision time for Depature: 18:45 Referrals: KETURAH ROMERO APRN (PCP) Primary Care Physician [facility] (Family) Primary Care Physician Patient Instructions: Itchy Skin Add. Discharge Instructions: The itchy skin earlier may or may not have been an allergy. We are certainly not seeing any signs of significant allergic reaction or anaphylaxis in the ER which is a good sign. We will send a prescription for hydroxyzine which will help with the itchiness as well as with anxiety. It is reasonable to stop the doxycycline just in case this was an allergic reaction. Call your regular doctor to see if they want to change her antibiotic to something else. We also recommend taking your losartan when you get home. Scripts Hydroxyzine HCl (Hydroxyzine HCl) 25 Mg Tablet 25 MG PO BID PRN for ITCHING for 14 Days, #28 TAB Prov: LORENA CLINTON MD 01/29/23 LORENA CLINTON MD Jan 29, 2023 18:08
[2023-01-29 18:40] VITALS: BP 170/57
== END 2023-01-29 18:40 | disposition home or self-care (01) ==
LOC: EDUNIT# 17:55 → ER FS 17:57
DX: L29.9 Pruritus, unspecified (principal)
CPT/HCPCS: 96374; 99283